=== PATIENT | male | born 1990 | race Caucasian/White ===

== ENCOUNTER 2020-08-14 10:19 | Emergency (ER) | payer OTHER ==
[2020-08-14 10:26] VITALS: TEMP 98; BMI 25.8
[2020-08-14 13:10] LABS: BASO % 0.3 % (0-2.0); EOS % 0.3 % (0-4.5); HEMATOCRIT 45.8 % (35.4-49); HEMOGLOBIN 15.3 GM/dL (11.7-16.9); LYMPH % 33.5 % (8-40); MCH 30.7 pg (25.7-33.7); MCHC 33.5 g/dl (32.0-35.9); MEAN CELL VOLUME 91.8 fl (80-96); MEAN PLT VOLUME 9.2 fl (7.5-11.1); NEUT % 58.9 % (42.8-82.8); PLATELET COUNT 156 K/MM3 (134-434); RBC 4.99 M/mm3 (4.00-5.60); RDW 12.8 % (11.9-15.9); WHITE BLOOD COUNT 5.2 K/mm3 (4.0-10.0)
[2020-08-14 13:11] LABS: PH,URINE 5.5 (5.0-8.0); URINE APPEARANCE CLEAR; URINE BILIRUBIN NEGATIVE (NEGATIVE); URINE COLOR YELLOW; URINE GLUCOSE (UA) NEGATIVE (NEGATIVE); URINE KETONE TRACE (NEGATIVE); URINE LEUK ESTERASE NEGATIVE (NEGATIVE); URINE NITRITE NEGATIVE (NEGATIVE); URINE PROTEIN NEGATIVE (NEGATIVE); URINE UROBILINOGEN 0.2 mg/dL (0.2-1.0)
[2020-08-14 13:31] LABS: POTASSIUM 3.9 mmol/L (3.5-5.1)
[2020-08-14 13:33] LABS: ALBUMIN 4.5 g/dl (3.4-5.0); CALCIUM 9.3 mg/dL (8.5-10.1)
[2020-08-14 13:34] LABS: BLOOD UREA NITROGEN 16.9 mg/dL (7-18); MAGNESIUM 2.2 mg/dL (1.8-2.4)
[2020-08-14 13:37] LABS: CREATININE 0.8 mg/dL (0.55-1.3)
[2020-08-14 13:38] LABS: BILIRUBIN,TOTAL 0.7 mg/dL (0.2-1)
[2020-08-14 16:31] VITALS: BP 156/83; PULSE 75
== END 2020-08-14 16:31 | disposition home or self-care (01) ==
LOC: JER 10:19 → JERFT 10:19 → JER 16:31
DX: S76.219A Strain of adductor muscle, fascia and tendon of unspecified thigh, initial encounter (principal)
CPT/HCPCS: 36415; 76705-TC; 80053; 81003; 83690; 83735; 85025; 87086; 99284-25